=== PATIENT | male | born 1955 | race Caucasian/White ===

== ENCOUNTER 2017-01-30 08:21 | Day surgery (SDC) | payer OTHER ==
[2017-01-30] MEDS ORDERED: MIDAZOLAM 2 MG/2 ML VIAL IVP ONE (08:26)
[2017-01-30] MEDS ORDERED: NS 1,000 ML IV ONE (08:26)
[2017-01-30] MEDS ORDERED: BENZOCAINE UNIT DOSE SPRAY HURRICAINE MM ONE (08:26)
[2017-01-30] MEDS ORDERED: fentaNYL 100 MCG/2 ML INJ IVP ONE (08:26)
[2017-01-30] MEDS ORDERED: fentaNYL 100 MCG/2 ML INJ ONE (10:02)
[2017-01-30] MEDS ORDERED: MIDAZOLAM 2 MG/2 ML VIAL ONE (10:03)
--- NOTE | 2017-01-30 12:25 | ECHO ---
[id number] + + [address] : : [place] [address] : : [phone] + + Transesophageal Echocardiographic Report + ---+ :Name: KAMILA POE Date: 01/30/2017 09:14 AM : : Hospital Admission Number: [id number] Location: C: :: 1955 Gender: Male : :Age: 61 yrs Race: WH : :Reason For Study: evaluate MR and MV repair : :History: mitral valve repair 2010 : + ---+ MMode/2D Measurements \T\ Calculations IVSd: 1.0 cm LVIDd: 5.8 cmFS: 39.6 % LVLd ap4: 11.0 cm LVPWd: 0.96 cm LVIDs: 3.5 cmEDV(Teich): 167.1 mlEDV(MOD-sp4): 260.0 ml ESV(Teich): 51.2 ml LVLs ap4: 8.7 cm EF(Teich): 69.4 % ESV(MOD-sp4): 69.0 ml EF(MOD-sp4): 73.5 % SV(MOD-sp4): 191.0 ml Normal Measurement Values: + + :LVIDd (3.5-5.7cm) IVSd (0.6-1.1cm) LVPWd (0.6-1.1cm) Aortic Root (2.0-3.7cm)Left Atrium (1.5-4.0cm): :LV Vol(d) (76-115ml) LV Vol(s) (29-48ml) Ejec Fraction (50-65%)PV Masoud (0.6- 1.2m/s) TV Masoud (0.4-1.0m/s) : :MV E Masoud (0.8-1.0m/s)MV A Masoud (0.3-1.0m/s)LVOT Masoud (0.7-1.2m/s) Asc Ao Masoud ( 0.9-1.8m/s) : + + Procedure NPO status confirmed, informed consent obtained, and timeout performed. The patient was adequately sedated with versed and fentanyl IV. The DARWIN probe was passed without difficulty. LV Left ventricle is mildly dilated. The LVEDD is 5.8 cm. LVESD is 3.5 cm. Ejection Fraction = 70%. No regional wall motion abnormalities noted. RV The right ventricle is normal in size and function. There is a pacemaker lead in the right ventricle. Atria Left atrium is moderately dilated. Ligated RAUL. The left atrium measures 25 cm2. No left atrial mass or thrombus visualized. Right atrial size is normal. There is a catheter/pacemaker lead seen in the right atrium. Injection of contrast documented no interatrial shunt. Mitral Valve S/P mitral valve repair in 2009. 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 There is a torn/flail chord and focal prolapse of the anterior leaflet. . There is severe mitral regurgitation. Flow reversal noted in pulmonary veins consistent with significant mitral regurgitation. The mitral regurgitant jet is eccentrically directed. Aortic Valve The aortic valve is trileaflet. Trace to mild aortic regurgitation. Pulmonic Valve The pulmonic valve is normal in structure and function. trace to mild pulmonic valvular regurgitation. Tricuspid Valve The tricuspid valve is normal in structure and function. There is trace tricuspid regurgitation. Unable to estimated PA pressures due to inadequate TR signal. Pericardium There is no pericardial effusion. Conclusion A 2D transesophageal echocardiogram with Doppler and color flow Doppler was performed. A bubble study was performed without evidence of a interatrial shunt. Left ventricle is mildly dilated. The LVEDD is 5.8 cm. LVESD is 3.5 cm. Ejection Fraction = 70%. RV normal in size and systolic function Pacer leads seen in right heart The left atrium is moderately dilated No left atrial mass or thrombus visualized. The left atrial appendage has been oversewn Injection of contrast documented no interatrial shunt. S/P mitral valve repair in 2009. 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 There is a torn/flail chord and focal prolapse of the anterior leaflet. . There is severe mitral regurgitation. Flow reversal noted in pulmonary veins consistent with significant mitral regurgitation. The mitral regurgitant jet is eccentrically directed. Trace to mild aortic regurgitation. trace to mild pulmonic valvular regurgitation. There is trace tricuspid regurgitation. Unable to estimated PA pressures due to inadequate TR signal. Final Reading Physician: Dr Mandi Tan electronically signed on 01/30/2017 12:23 PM Ordering Physician: Mandi Tan Performed By: Dr Mandi Tan
== END 2017-01-30 12:00 | disposition home or self-care (01) ==
LOC: FCATH 08:21
PROVIDERS: ATTEND Internal Medicine Cardiovascular Disease
PROC: B246ZZ4 Ultrasonography of Right and Left Heart, Transesophageal (ICD-10-PCS; principal; 2017-01-30)
DX: I34.0 Nonrheumatic mitral (valve) insufficiency (principal); Z98.890 Other specified postprocedural states
CPT/HCPCS: J2250; J3010

== ENCOUNTER 2017-06-05 07:36 | Day surgery (SDC) | payer OTHER ==
[2017-06-05] MEDS ORDERED: DIAZEPAM 5 MG TAB PO ONE (07:40)
[2017-06-05] MEDS ORDERED: NS 1,000 ML IV ONE (07:40)
[2017-06-05] MEDS ORDERED: diphenhydrAMINE 25 MG CAP PO ONE (07:40)
[2017-06-05] MEDS ORDERED: ASPIRIN EC 325 MG TAB PO ONE (07:40)
[2017-06-05] MEDS ORDERED: FAMOTIDINE 20 MG TAB PO ONE (07:40)
--- NOTE | 2017-06-05 08:09 | CPEKG ---
Heart Rate: 59 RR Interval: 1017 P-R Interval: 184 QRSD Interval: 102 QT Interval: 460 QTC Interval: 456 P [place]: 73 QRS [place]: -31 T Wave [place]: 48 EKG Severity - ABNORMAL ECG - EKG Impression: ATRIAL-PACED COMPLEXES EKG Impression: LEFT AXIS DEVIATION Electronically Signed By: William Whitman 05-Jun-2017 15:15:57
[2017-06-05 08:29] LABS: % IMMATURE GRANULYOCYTES 0.3 % (0.0-1.1); ABSOLUTE IMMATURE GRANULOCYTES 0.02 10^3/uL (0.00-0.10); ADD DIFF? NO; ADD MORPH? NO; ADD SCAN? NO; ATYPICAL LYMPHOCYTE FLAG 10 (0-99); FRAGMENT RBC FLAG 0 (0-99); HEMATOCRIT 45.5 % (40.0-51.0); HEMOGLOBIN 15.6 g/dL (13.7-17.5); LEFT SHIFT FLG 0 (0-99); LIPEMIA HEMOLYSIS FLAG 90 (0-99); MEAN CELL HEMOGLOBIN 33.1 pg (27.9-34.1); MEAN CELL HEMOGLOBIN CONCENTR. 34.3 g/dL (32.4-36.7); MEAN CELL VOLUME 96.4 fL (81.5-99.8); MEAN PLATELET VOLUME 10.5 fL (8.7-11.7); PLATELET CLUMPS FLAG 0 (0-99); PLATELET COUNT 173 10^3/uL (150-400); RED BLOOD CELL COUNT 4.72 10^6/uL (4.40-6.38); RED CELL DISTRIBUTION WIDTH 12.6 % (11.5-15.2)
[2017-06-05] MEDS ORDERED: LIDOCAINE 1% 300 MG/30 ML SDV ONE (08:33)
[2017-06-05] MEDS ORDERED: MIDAZOLAM 2 MG/2 ML VIAL ONE ×2 (08:34→10:48)
[2017-06-05] MEDS ORDERED: IOPAMIDOL (ISOVUE-370) 150 ML BTL IV ONE (08:34)
[2017-06-05] MEDS ORDERED: fentaNYL 100 MCG/2 ML INJ ONE (08:34)
[2017-06-05 08:40] LABS: INR 1.13 (0.83-1.16); PROTIME(PATIENT) 14.4 SEC (12.0-15.0)
[2017-06-05 08:43] LABS: ANION GAP 10 mEq/L (8-16); CALCIUM 9.7 mg/dL (8.5-10.4); CARBON DIOXIDE 24 mEq/l (22-31); CHLORIDE 107 mEq/L (97-110); CHOLESTEROL 151 mg/dL (140-220); GLOMERULAR FILTRATION RATE > 60; GLUCOSE 89 mg/dL (70-100); HIGH DENSITY LIPOPROTEIN 52 mg/dL (40-65); LDL/HDL RATIO 1.62 RATIO (1.00-3.64); LOW DENSITY LIPOPROTEIN 84 mg/dL (80-100); MAGNESIUM 1.9 mg/dL (1.6-2.3); NON-HIGH DENSITY LIPOPROTEIN 99 mg/dL (90-129); POTASSIUM 4.1 mEq/L (3.5-5.2); SODIUM 141 mEq/L (134-144); TRIGLYCERIDE 77 mg/dL (40-150); VERY LOW DENSITY LIPOPROTEINS 15 mg/dL (8-25)
[2017-06-05] MEDS ORDERED: VERAPAMIL 5 MG/2 ML VIAL ONE (09:57)
[2017-06-05] MEDS ORDERED: HEPARIN 10,000 UNIT/10 ML MDV ONE (09:57)
--- NOTE | 2017-06-05 10:00 | PDPROPOC ---
Sedation Plan of Care Sedation Plan of Care: vital signs stable, mental status noted, patient educated of risks, benefits, alternatives, patient can tolerate sedation ASA Classification: ASA 1 Planned drugs: fentanyl, midazolam Mallampati Score: Class 1 Mallampati Reference Image: Patient passed 3-3-2 rule?: Yes
--- NOTE | 2017-06-05 10:00 | PDGENHP ---
History & Physical Chief Complaint: mitral valve disease History of Present Illness: 61 yo M with history of MV repair in [place] in 2009. Now with failed repair and severe MR (A2 rupture). LA dilation, reported elevated pulmonary pressures and subjective decline in exercise tolerance. He presents for diagnostic left and right heart cath prior to cardiac surgery. Pertinent Past, Social, Family History: MV repair 2009. Pacemaker. Dyslipidemia. Hypothyroidism. Non smoker, denies heavy EtOH. 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 FHx not applicable Relevant Physical Exam: NAD. JVP <10. RRR harsh holosystolic murmur at the apex and throughout the precordium. No gallop or rub. Lungs CTAB. No edema Cardiorespiratory Assessment: Lungs CTAB
[2017-06-05] MEDS ORDERED: NITROGLYCERIN 1,500 MCG/15 ML VIAL MISC ONE (10:50)
[2017-06-05] MEDS ORDERED: OXYCODONE/APAP 5/325 TAB PO PRN (11:44)
[2017-06-05] MEDS ORDERED: ONDANSETRON 4 MG/2 ML VIAL IVP PRN (11:44)
[2017-06-05] MEDS ORDERED: NITROGLYCERIN 0.4 MG BTL SL PRN (11:44)
[2017-06-05] MEDS ORDERED: ATROPINE SULFATE 1 MG/10 ML SYR IVP PRN (11:44)
[2017-06-05] MEDS ORDERED: HYDROCODONE/APAP 5/325 TAB PO PRN (11:44)
--- NOTE | 2017-06-05 11:44 | POSTOPPROG ---
Post Op Note Date of Operation: 06/05/17 Surgeon: Mandi Tan Anesthesia: IV Sedation Pre-op Diagnosis: MR Post-op Diagnosis: MR, no sig CAD Indication: pre mitral surgery Procedure: RHC/LHC/V gram/cor angio Findings: no sig CAD; elevated right heart pressures. Severe MR on V gram. Nl LVEF Inf/Abcess present in the surg proc area at time of surgery?: No EBL: Minimal Total fluids administered: 500 cc NS Complications: none Specimen(s): none
--- NOTE | 2017-06-05 12:28 | CPIP ---
[f rep st] INVASIVE CARDIAC PROCEDURE DATE OF PROCEDURE: 06/05/2017 PROCEDURES: 1. Right heart catheterization. 2. Left heart catheterization. 3. Coronary angiography. 4. Left ventriculography. COMPLICATIONS: None apparent. INDICATIONS: Preoperative planning prior to second mitral valve surgery for recurrent severe mitral regurgitation. DESCRIPTION OF PROCEDURE: N.p.o. status was confirmed, informed consent obtained, and timeout perfor med. The patient was brought to the catheterization laboratory and prepped and draped in sterile fas hion. Adequate conscious sedation was achieved with Versed and fentanyl IV. 1% lidocaine was used f or local anesthesia of the right antecubital area and the right wrist radial artery area. Using shanique fied Seldinger technique, a 5-[place] introducer sheath was placed in the right brachial vein, and rig ht heart catheterization was performed. Then, using modified Seldinger technique, a 5-[place] introdu cer sheath was placed in the right radial artery and coronary angiography obtained. Catheters used w ere Java-Atif catheter for right heart catheterization, AR1 catheter for right coronary angiography, JL3.5 catheter for left coronary angiography, and pigtail catheter for left ventriculography. FINDINGS: RIGHT HEART CATHETERIZATION: RA pressure is 6. PA pressure 57/11 with a mean of 30. Pul monary capillary wedge pressure is 19 with V-wave to 36. RV pressure 54/0. Calculated Kirby cardiac output with the patient on 1.5 L of nasal cannula oxygen is 6.94 L/min with a cardiac index of 3.75 L /min per meter squared, consistent with high output state. RA sat 83%. PA sat 83.9%. LEFT HEART PRESSURES: Aortic pressure 103/57, LV pressure 100/5 with an end-diastolic pressure of 18 . CORONARY ANGIOGRAPHY: 1. The left main is normal and bifurcates into the LAD and left circumflex system. 2. The LAD reaches the apex. There is a prominent septal ell teacher and 2 principle diagonal vessel s. 3. There is no flow-limiting disease in the LAD or its branches. 4. The left circumflex has 2 large obtuse marginals. There is approximately 20% stenosis at the bif urcation point of the left circumflex and obtuse marginals without flow-limiting disease. 5. The right coronary artery is large and dominant and free of significant coronary disease. LEFT VENTRICULOGRAPHY: Left ventricular ejection fraction is normal at 65% without regional wall mot ion abnormalities. There is severe mitral regurgitation. Visualized portions of the ascending aorta appear normal. CONCLUSIONS: 1. Moderate pulmonary hypertension. Elevated wedge pressure and prominent V-waves, consistent with severe mitral regurgitation. 2. Normal left heart pressures and normal left ventricular ejection fraction. 3. No significant flow-limiting coronary artery disease in this right-dominant system. 4. Results discussed with the patient. Right radial arteriotomy site was sealed with a TR Band, and he was taken to the [facility] in stable condition to be discharged later today. 5. Continue presurgical planning. The patient has consultation at the [facility] next month. Copy requested to: Primary Care Niraj Pantoja MD [facility] /[id number]/MODL
== END 2017-06-05 16:10 | disposition home or self-care (01) ==
LOC: FCATH 07:36
PROVIDERS: ATTEND Internal Medicine Cardiovascular Disease
PROC: B2151ZZ Fluoroscopy of Left Heart using Low Osmolar Contrast (ICD-10-PCS; principal; 2017-06-05)
PROC: B2111ZZ Fluoroscopy of Multiple Coronary Arteries using Low Osmolar Contrast (ICD-10-PCS; principal; 2017-06-05)
PROC: 4A023N8 Measurement of Cardiac Sampling and Pressure, Bilateral, Percutaneous Approach (ICD-10-PCS; principal; 2017-06-05)
DX: T82.897A Other specified complication of cardiac prosthetic devices, implants and grafts, initial encounter (principal); I34.0 Nonrheumatic mitral (valve) insufficiency; Z01.810 Encounter for preprocedural cardiovascular examination; Z95.0 Presence of cardiac pacemaker; E78.5 Hyperlipidemia, unspecified; E03.9 Hypothyroidism, unspecified
CPT/HCPCS: J1644; J2250; J3010; Q9967

== ENCOUNTER 2017-07-27 15:09 | Emergency (ER) | payer OTHER ==
--- NOTE | 2017-07-27 15:25 | EDPHY ---
H & P Stated Complaint: L SIDED NUMBNESS, MITRAL VALVE REPLACMENT 07/11 Time Seen by Provider: 07/27/17 15:25 HPI/ROS: CHIEF COMPLAINT: Left-sided arm and leg numbness, discoordination HISTORY OF PRESENT ILLNESS: The patient presents to the ED after he developed left-sided arm and leg paresthesias with some mild discoordination of his left hand. The patient has a history of mitral valve replacement approximately 2 weeks ago. He also has a pacemaker and is currently anticoagulated with warfarin. The patient did have some postoperative atrial fibrillation. The patient reports a prior history of TIA approximately 7 years ago with similar symptoms. The patient denies any fall or trauma. He denies acute headache. He denies fever, abdominal pain or vomiting. REVIEW OF SYSTEMS: A comprehensive 10 point review of systems is otherwise negative aside from elements mentioned in the history of present illness. Source: Patient Exam Limitations: No limitations - Medical/Surgical History Other PMH: PACEMAKER, SHOGRINS, MITRAL VALVE REPLACMENT, HYPOTHYROID, TIA - Social History Smoking Status: Never smoked - Physical Exam Exam: General Appearance: Alert, no distress Eyes: Pupils equal and round no pallor or injection ENT, Mouth: Mucous membranes moist Respiratory: There are no retractions, lungs are clear to auscultatio Cardiovascular: Regular rate and rhythm Gastrointestinal: Abdomen is soft and nontender, no masses, bowel sounds normal Neurological: A&O, normal motor function, normal sensory exam, normal cranial nerves Skin: Warm and dry, no rashes Musculoskeletal: Neck is supple nontender Extremities: Slight discoordination noted with the left hand when attempting fine motor movement, patient reports a decreased sensation to light touch along the left arm and leg Constitutional: Initial Vital Signs Heart Rate 77 07/27/17 15:18 Respiratory Rate 16 07/27/17 15:18 Blood Pressure 143/87 H 07/27/17 15:18 O2 Sat (%) 96 07/27/17 15:18 O2 Delivery Mode Room Air Allergies/Adverse Reactions: No Known Allergies Allergy (Unverified 01/30/17 08:26) Home Medications: Medication Instructions Recorded Aspirin 81 mg PO DAILY 01/30/17 Levothyroxine 62.5 mcg PO DAILY 01/30/17 Lisinopril 5 mg PO DAILY 01/30/17 Cevimeline HCl 07/27/17 Coumadin 07/27/17 MAGNESIUM 07/27/17 Metoprolol 07/27/17 Protonix 07/27/17 Medical Decision Making - Diagnostics EKG Interpretation: EKG: Complete interpretation has been separately recorded in the [facility] archive. Summary impression: Sinus rhythm, rate 72 Imaging Results: Imaging Impressions Head CT 07/27/17 16:45 Impression: Normal brain. No acute intracranial hemorrhage or evidence of ischemia. Findings discussed with Emergency Department physician, Kyaw Rangel on 07/27, 1822 hours. Head CTA 07/27/17 16:45 Impression: 1. Normal intracranial arterial circulation. No evidence of embolic disease or aneurysm. 2. Patent venous system. Findings discussed with Emergency Department physician, Kyaw Rangel on 07/27, 18:41. Neck CTA 07/27/17 16:45 Impression: 1. Widely patent carotid and vertebral arteries. Minimal noncalcified plaque in the right carotid bulb results in less than 20% narrowing. 2. No dissection or occlusion. Measurement of carotid stenosis is based on the residual internal carotid diameter with [place] Symptomatic Carotid Endarterectomy Trial (NASCET) based stenosis levels. Findings discussed with Emergency Department physician, Kyaw Rangel on 07/27, 18:41. ED Course/Re-evaluation: The patient presents to the ED with complaints of acute left-sided paresthesias and mild discoordination involving his left hand. The patient has a history of recently diagnosed AFib following mitral valve repair. He is currently anticoagulated. Patient had only mild decreased sensation to light touch on my evaluation. The patient is not a candidate for thrombolytics therapy based upon his current INR status the patient was taken for a noncontrast head CT scan which demonstrates no evidence of intracranial hemorrhage or obvious stroke. The patient underwent a CT angiogram of the head neck which demonstrate no evidence of stenosis, dissection or flow-limiting obstruction. The patient had serial examinations in the ED over a 3 hour period. He has had complete resolution of his neurologic symptoms. The case was discussed with his regular nurse behavioral health care in [place]. At this point time the patient is comfortable being discharged home and continuing his Coumadin. He would not be a candidate for thrombolytics therapy. He has no evidence of a lesion which requires a neuro interventional procedure. The patient is comfortable returning to the emergency department for any recurrent neurologic symptoms this weekend. The patient will follow up with his regular nurse behavioral health care in [place]. The patient's troponin is felt to be nonspecifically elevated in the setting of his recent cardiac surgery. Differential Diagnosis: Differential diagnosis considered includes intracranial hemorrhage, stroke, TIA , migraine variant, arrhythmia, vascular dissection, carotid stenosis - Data Points Laboratory Results: Laboratory Results 07/27/17 15:28 07/27/17 15:28 07/27/17 07/27/17 07/27/17 15:28 15:28 15:28 WBC 7.67 10^3/uL 10^3/uL (3.80-9.50) RBC 3.42 10^6/uL L 10^6/uL (4.40-6.38) Hgb 11.3 g/dL L g/dL (13.7-17.5) Hct 34.3 % L % (40.0-51.0) MCV 100.3 fL H fL (81.5-99.8) MCH 33.0 pg pg (27.9-34.1) MCHC 32.9 g/dL g/dL (32.4-36.7) RDW 12.8 % % (11.5-15.2) Plt Count 530 10^3/uL H 10^3/uL (150-400) MPV 9.1 fL fL (8.7-11.7) Neut % (Auto) 67.5 % % (39.3-74.2) Lymph % (Auto) 18.3 % % (15.0-45.0) [place] % (Auto) 11.3 % % (4.5-13.0) Eos % (Auto) 1.7 % % (0.6-7.6) Baso % (Auto) 0.7 % % (0.3-1.7) Nucleat RBC Rel Count 0.0 % % (0.0-0.2) Absolute Neuts (auto) 5.18 10^3/uL 10^3/uL (1.70-6.50) Absolute Lymphs (auto) 1.40 10^3/uL 10^3/uL (1.00-3.00) Absolute Monos (auto) 0.87 10^3/uL H 10^3/uL (0.30-0.80) Absolute Eos (auto) 0.13 10^3/uL 10^3/uL (0.03-0.40) Absolute Basos (auto) 0.05 10^3/uL 10^3/uL (0.02-0.10) Absolute Nucleated RBC 0.00 10^3/uL 10^3/uL (0-0.01) Immature Gran % 0.5 % % (0.0-1.1) Immature Gran # 0.04 10^3/uL 10^3/uL (0.00-0.10) PT 21.9 SEC H SEC (12.0-15.0) INR 1.90 H (0.83-1.16) Sodium 137 mEq/L mEq/L (134-144) Potassium 4.4 mEq/L mEq/L (3.5-5.2) Chloride 100 mEq/L mEq/L (97-110) Carbon Dioxide 25 mEq/l mEq/l (22-31) Anion Gap 12 mEq/L mEq/L (8-16) BUN 16 mg/dL mg/dL (7-23) Creatinine 0.9 mg/dL mg/dL (0.7-1.3) Estimated GFR > 60 Glucose 104 mg/dL H mg/dL (70-100) Calcium 9.1 mg/dL mg/dL (8.5-10.4) Troponin I 0.089 ng/mL H ng/mL (0.000-0.034) Departure - Departure Disposition: Home, Routine, Self-Care Clinical Impression: Transient cerebral ischemia Condition: Good Instructions: Transient Ischemic Attack (ED) Additional Instructions: 1. Please follow-up with your physician in [place] as scheduled on Sunday. 2. Return to the emergency department this weekend for any severe headache, recurrent neurologic symptoms, palpitations, chest pain, difficulty breathing or other concerns. 3. Please continue Coumadin as prescribed. Referrals: FLAV[facility] FENTON [Other] - As per Instructions
[2017-07-27 15:45] LABS: PLATELET COUNT 530 10^3/uL (150-400)
--- NOTE | 2017-07-27 15:47 | CPEKG ---
Heart Rate: 72 RR Interval: 833 P-R Interval: 184 QRSD Interval: 94 QT Interval: 400 QTC Interval: 438 P [place]: -71 QRS [place]: -11 T Wave [place]: 85 EKG Severity - OTHERWISE NORMAL ECG - EKG Impression: SINUS RHYTHM Electronically Signed By: Kyaw Rangel 27-Jul-2017 18:24:41
[2017-07-27 16:09] LABS: INR 1.9 (0.83-1.16); PROTIME(PATIENT) 21.9 SEC (12.0-15.0)
[2017-07-27] MEDS ORDERED: IOPAMIDOL (ISOVUE 370) 100 ML BTL IV ONE (17:02)
[2017-07-27 18:00] VITALS: RESP 18
[2017-07-27 19:22] VITALS: BP 132/71; PULSE 71; TEMP 98.8; O2SAT 94
== END 2017-07-27 19:36 | disposition home or self-care (01) ==
DX: G45.9 Transient cerebral ischemic attack, unspecified (principal); Z79.01 Long term (current) use of anticoagulants; Z79.82 Long term (current) use of aspirin; Z95.0 Presence of cardiac pacemaker
CPT/HCPCS: Q9967